=== PATIENT | female | born 1970 | race Hispanic/Latino ===

== ENCOUNTER 2020-10-15 15:04 | Inpatient (IN) | payer OTHER ==
[~2020-10-15] VITALS: Ht 157.5 cm; Wt 104.4 kg
[2020-10-15] MEDS ORDERED: ONDANSETRON HCL INJ 2MG/ML 2ML 2 MG/ML VIAL IV STA (16:04)
[2020-10-15] MEDS ORDERED: KETOROLAC TROMETHAMINE 30 MG/ML VIAL IV STA (16:04)
[2020-10-15] MEDS ORDERED: SODIUM CHLORIDE 0.9% 1000ML 1,000 ML IV STA (16:04)
[2020-10-15] MEDS ORDERED: METHYLPREDNISOLONE SOD SUCC 125 MG/2ML VIAL IV ONE (16:15)
[2020-10-15] MEDS ORDERED: SODIUM CHLORIDE FLUSH 10 ML SYR INJ PRN (16:15)
[2020-10-15] MEDS ORDERED: METHYLPREDNISOLONE SOD SUCC 125 MG/2ML VIAL ONE (17:13)
[2020-10-15] MEDS ORDERED: SODIUM CHLORIDE 0.9% 1000ML 1,000 ML ONE (17:14)
[2020-10-15] MEDS ORDERED: KETOROLAC TROMETHAMINE 30 MG/ML VIAL ONE (17:14)
[2020-10-15] MEDS ORDERED: ONDANSETRON HCL INJ 2MG/ML 2ML 2 MG/ML VIAL ONE (17:14)
[2020-10-15] MEDS ORDERED: SODIUM CHLORIDE 0.9% 50ML 50 ML ONE (17:39)
[2020-10-15] MEDS ORDERED: IOPAMIDOL 370 MG/ML 200 ML INFUS..BTL INJ ONE (17:39)
[2020-10-15] MEDS ORDERED: CEFEPIME 1GM/NS 0.9% 50 ML 50 ML IV STA (18:36)
[2020-10-15] MEDS ORDERED: AZITHROMYCIN 500MG/NS 250 ML 250 ML IV ONE (19:15)
[2020-10-15] MEDS ORDERED: AZITHROMYCIN 500MG/NS 250 ML 250 ML ONE (20:07)
[2020-10-15] MEDS ORDERED: ACETAMINOPHEN 325 MG TAB PO PRN (21:15)
[2020-10-15] MEDS ORDERED: CEFTRIAXONE SOD 1 GM/50 ML BAG IV SCH (21:15)
[2020-10-15] MEDS ORDERED: ONDANSETRON HCL INJ 2MG/ML 2ML 2 MG/ML VIAL IV PRN (21:15)
[2020-10-15] MEDS ORDERED: KETOROLAC TROMETHAMINE 30 MG/ML VIAL IV PRN (21:15)
[2020-10-15] MEDS: AZITHROMYCIN 500MG/NS 250 ML 250 ML IV SCH (21:24)
[2020-10-15] MEDS: SODIUM CHLORIDE 0.9% 1000ML 1,000 ML IV SCH (21:30)
[2020-10-15] MEDS ORDERED: REMDESIVIR 200MG/NS 100ML 200 MG in SODIUM CHLORIDE 0.9% 100 ML 100 ML IV ONE (23:00)
[2020-10-15 23:06] VITALS: BP 128/66
[2020-10-16] VITALS (8 sets, daily range): BP systolic 112–133; BP diastolic 54–72
[2020-10-16] MEDS: SODIUM CHLORIDE 0.9% 1000ML 1,000 ML IV SCH (06:53)
[2020-10-16 07:30] LABS: CREATINE KINASE 37 IU/L (29-168)
[2020-10-16] MEDS ORDERED: SIMETHICONE 80 MG CHEW PO PRN (07:30)
[2020-10-16] MEDS ORDERED: ONDANSETRON HCL INJ 2MG/ML 2ML 2 MG/ML VIAL IV PRN (07:30)
[2020-10-16] MEDS ORDERED: CHLORASEPTIC SPRAY 177 ML BTL MM PRN (07:30)
[2020-10-16] MEDS ORDERED: POLYETHYLENE GLYCOL 3350 17 GM PACK PO PRN (07:30)
[2020-10-16] MEDS ORDERED: LIDOCAINE 4% PATCH TP PRN (07:30)
[2020-10-16] MEDS ORDERED: BENZONATATE 100 MG CAP PO PRN (07:30)
[2020-10-16] MEDS ORDERED: DEXTROSE 50% SYRINGE 50 ML IV PRN (07:30)
[2020-10-16] MEDS ORDERED: HYDRALAZINE HCL 20 MG/ML VIAL IV PRN (07:30)
[2020-10-16] MEDS ORDERED: DOCUSATE SODIUM 100 MG CAP PO PRN (07:30)
[2020-10-16] MEDS ORDERED: POTASSIUM CHLORIDE 20 MEQ TAB CR PO PRN (07:30)
[2020-10-16 07:40] LABS: HEMATOCRIT 40.3 % (34.2-44.1); HEMOGLOBIN 13.3 g/dL (12.0-16.0); LYMPHOCYTES # (AUTO) 0.7 (1.0-3.2); LYMPHOCYTES % 23.4 % (18.0-39.1); MEAN CORPUSCULAR HEMOGLOBIN 27.3 pg (28-32); MEAN CORPUSCULAR VOLUME 82.6 fL (81-99); MONOCYTES # (AUTO) 0.2 (0.2-0.8); MONOCYTES % 6.3 % (4.4-11.3); NEUTROPHILS % 69.6 % (38.7-80.0); PLATELET COUNT 191 x10e3/uL (140-360); RED BLOOD COUNT 4.88 x10e6/uL (3.6-5.1); RED CELL DISTRIBUTION WIDTH 14.3 % (11.7-14.4)
[2020-10-16 07:50] LABS: ANION GAP 15.2 mmol/L (8-16); BLOOD UREA NITROGEN 14 mg/dL (7-26); BUN/CREATININE RATIO 23 (6-25); CALCIUM 8.3 mg/dL (8.4-10.2); CARBON DIOXIDE 21 mmol/L (22-29); CHLORIDE 107 mmol/L (98-107); CREATININE, SERUM 0.62 mg/dL (0.57-1.11); EST GLOMERULAR FILTRATION RATE > 60 ML/MIN (60-); GLUCOSE 135 mg/dL (74-118); POTASSIUM 4.2 mmol/L (3.5-5.1); SODIUM 139 mmol/L (136-145)
[2020-10-16] MEDS ORDERED: CEFTRIAXONE SOD 1 GM VIAL ONE (07:53)
[2020-10-16] MEDS: PANTOPRAZOLE SOD 40 MG TABEC PO SCH (08:23)
[2020-10-16] MEDS: ASCORBIC ACID 500 MG TAB PO SCH ×2 (08:23→16:04)
[2020-10-16] MEDS: ZINC SULFATE 220 MG CAP PO SCH (08:23)
[2020-10-16] MEDS: CEFTRIAXONE SOD 1 GM in DEXTROSE 5% 50ML 50 ML IV SCH (08:23)
[2020-10-16] MEDS ORDERED: METHYLPREDNISOLONE SOD SUCC 125 MG/2ML VIAL IV SCH (09:00)
[2020-10-16] MEDS: DEXAMETHASONE SOD PHOS INJ 4 MG/ML VIAL IV SCH (12:30)
[2020-10-16 15:33] LABS: CREATINE KINASE MB 0.5 ng/mL (0-5.0)
[2020-10-16] MEDS: BENZONATATE 100 MG CAP PO SCH ×2 (15:49→21:18)
[2020-10-16] MEDS: ENOXAPARIN SOD INJ 40 MG/0.4 ML SYR SC SCH (16:04)
[2020-10-16] MEDS ORDERED: METHYLPREDNISOLONE SOD SUCC 40 MG/ML VIAL 1ML IV SCH (21:00)
[2020-10-16] MEDS: AZITHROMYCIN 500MG/NS 250 ML 250 ML IV SCH (21:18)
[2020-10-16] MEDS: ACETAMINOPHEN 325 MG TAB PO PRN (21:30)
[2020-10-17] VITALS (8 sets, daily range): BP systolic 108–127; BP diastolic 53–64
[2020-10-17] MEDS: ACETAMINOPHEN 325 MG TAB PO PRN ×2 (05:51→21:23)
[2020-10-17] MEDS: BENZONATATE 100 MG CAP PO SCH ×3 (09:01→21:00)
[2020-10-17] MEDS: ASCORBIC ACID 500 MG TAB PO SCH ×2 (09:01→16:37)
[2020-10-17] MEDS: PANTOPRAZOLE SOD 40 MG TABEC PO SCH (09:01)
[2020-10-17] MEDS: DEXAMETHASONE SOD PHOS INJ 4 MG/ML VIAL IV SCH (09:01)
[2020-10-17] MEDS: CEFTRIAXONE SOD 1 GM in DEXTROSE 5% 50ML 50 ML IV SCH (09:01)
[2020-10-17] MEDS: ZINC SULFATE 220 MG CAP PO SCH (09:01)
[2020-10-17] MEDS: GUAIFENESIN/CODEINE 10 ML CUP PO PRN (12:00)
[2020-10-17] MEDS ORDERED: REMDESIVIR 200MG/NS 100ML 200 MG IV ONE (14:00)
[2020-10-17] MEDS: ENOXAPARIN SOD INJ 40 MG/0.4 ML SYR SC SCH (16:37)
[2020-10-17] MEDS: AZITHROMYCIN 500MG/NS 250 ML 250 ML IV SCH (21:15)
[2020-10-18] VITALS (7 sets, daily range): BP systolic 111–118; BP diastolic 56–63
[2020-10-18] MEDS ORDERED: CEFTRIAXONE SOD 1 GM VIAL ONE (08:01)
[2020-10-18] MEDS ORDERED: SODIUM CHLORIDE 0.9% 50ML 50 ML ONE (08:02)
[2020-10-18] MEDS: ZINC SULFATE 220 MG CAP PO SCH (08:30)
[2020-10-18] MEDS: DEXAMETHASONE SOD PHOS INJ 4 MG/ML VIAL IV SCH (08:30)
[2020-10-18] MEDS: PANTOPRAZOLE SOD 40 MG TABEC PO SCH (08:30)
[2020-10-18] MEDS: BENZONATATE 100 MG CAP PO SCH ×3 (08:30→21:39)
[2020-10-18] MEDS: ASCORBIC ACID 500 MG TAB PO SCH ×2 (08:30→16:25)
[2020-10-18] MEDS: CEFTRIAXONE SOD 1 GM in DEXTROSE 5% 50ML 50 ML IV SCH (08:30)
[2020-10-18] MEDS: REMDESIVIR 100MG/NS 100ML 100 MG in SODIUM CHLORIDE 0.9% 100 ML 100 ML IV SCH (14:31)
[2020-10-18] MEDS: ENOXAPARIN SOD INJ 40 MG/0.4 ML SYR SC SCH (16:25)
[2020-10-18] MEDS: GUAIFENESIN/CODEINE 10 ML CUP PO PRN (21:39)
[2020-10-18] MEDS: MELATONIN 5 MG TABLET PO PRN (21:39)
[2020-10-18] MEDS: DIPHENHYDRAMINE HCL 25 MG CAP PO PRN (21:39)
[2020-10-18] MEDS: AZITHROMYCIN 500MG/NS 250 ML 250 ML IV SCH (21:39)
[2020-10-19] VITALS (9 sets, daily range): BP systolic 111–149; BP diastolic 59–76
[2020-10-19 05:00] LABS: BASOPHILS % 0.3 % (0.0-1.0); HEMATOCRIT 38.6 % (34.2-44.1); HEMOGLOBIN 12.5 g/dL (12.0-16.0); LYMPHOCYTES # (AUTO) 1.8 (1.0-3.2); LYMPHOCYTES % 28.3 % (18.0-39.1); MEAN CORPUSCULAR HEMOGLOBIN 27.2 pg (28-32); MEAN CORPUSCULAR HGB CONC 32.4 g/dL (31-35); MEAN CORPUSCULAR VOLUME 83.9 fL (81-99); MONOCYTES # (AUTO) 0.6 (0.2-0.8); MONOCYTES % 9.7 % (4.4-11.3); NEUTROPHILS # (AUTO) 3.9 (2.1-6.9); NEUTROPHILS % 60.6 % (38.7-80.0); PLATELET COUNT 242 x10e3/uL (140-360); RED CELL DISTRIBUTION WIDTH 14.3 % (11.7-14.4)
[2020-10-19 05:24] LABS: ANION GAP 12.8 mmol/L (8-16); BLOOD UREA NITROGEN 19 mg/dL (7-26); BUN/CREATININE RATIO 29 (6-25); CALCIUM 8.6 mg/dL (8.4-10.2); CARBON DIOXIDE 26 mmol/L (22-29); CHLORIDE 104 mmol/L (98-107); CREATININE, SERUM 0.65 mg/dL (0.57-1.11); EST GLOMERULAR FILTRATION RATE > 60 ML/MIN (60-); GLUCOSE 95 mg/dL (74-118); POTASSIUM 3.8 mmol/L (3.5-5.1); SODIUM 139 mmol/L (136-145)
[2020-10-19 06:34] LABS: LYMPHOCYTES % (MANUAL) 33 % (19-48); MONOCYTES % (MANUAL) 8 % (3.4-9.0); NEUTROPHILS % (MANUAL) 54 % (40-74)
[2020-10-19 06:35] LABS: PLATELET ESTIMATE ADEQUATE; PLATELET MORPHOLOGY COMMENT NORMAL; RBC MORPHOLOGY COMMENT NORMAL
[2020-10-19] MEDS: PANTOPRAZOLE SOD 40 MG TABEC PO SCH (07:35)
[2020-10-19] MEDS: DEXAMETHASONE SOD PHOS INJ 4 MG/ML VIAL IV SCH (07:36)
[2020-10-19] MEDS: ZINC SULFATE 220 MG CAP PO SCH (07:37)
[2020-10-19] MEDS: CEFTRIAXONE SOD 1 GM in DEXTROSE 5% 50ML 50 ML IV SCH (07:37)
[2020-10-19] MEDS: ASCORBIC ACID 500 MG TAB PO SCH ×2 (07:37→16:28)
[2020-10-19] MEDS: BENZONATATE 100 MG CAP PO SCH ×3 (07:37→20:53)
[2020-10-19] MEDS: REMDESIVIR 100MG/NS 100ML 100 MG in SODIUM CHLORIDE 0.9% 100 ML 100 ML IV SCH (13:15)
[2020-10-19] MEDS: ENOXAPARIN SOD INJ 40 MG/0.4 ML SYR SC SCH (16:28)
[2020-10-19] MEDS: DIPHENHYDRAMINE HCL 25 MG CAP PO PRN (20:53)
[2020-10-19] MEDS: AZITHROMYCIN 500MG/NS 250 ML 250 ML IV SCH (20:53)
[2020-10-19] MEDS: MELATONIN 5 MG TABLET PO PRN (20:53)
[2020-10-20] VITALS (7 sets, daily range): BP systolic 112–125; BP diastolic 54–74
[2020-10-20] MEDS ORDERED: CEFTRIAXONE SOD 1 GM VIAL ONE (07:59)
[2020-10-20] MEDS: DEXAMETHASONE SOD PHOS INJ 4 MG/ML VIAL IV SCH (08:37)
[2020-10-20] MEDS: PANTOPRAZOLE SOD 40 MG TABEC PO SCH (08:37)
[2020-10-20] MEDS: ASCORBIC ACID 500 MG TAB PO SCH ×2 (08:38→15:15)
[2020-10-20] MEDS: CEFTRIAXONE SOD 1 GM in DEXTROSE 5% 50ML 50 ML IV SCH (08:38)
[2020-10-20] MEDS: ZINC SULFATE 220 MG CAP PO SCH (08:38)
[2020-10-20] MEDS: BENZONATATE 100 MG CAP PO SCH ×3 (08:38→21:00)
[2020-10-20] MEDS: REMDESIVIR 100MG/NS 100ML 100 MG in SODIUM CHLORIDE 0.9% 100 ML 100 ML IV SCH (14:00)
[2020-10-20] MEDS: ENOXAPARIN SOD INJ 40 MG/0.4 ML SYR SC SCH (15:15)
[2020-10-20] MEDS: DIPHENHYDRAMINE HCL 25 MG CAP PO PRN (21:07)
[2020-10-20] MEDS: MELATONIN 5 MG TABLET PO PRN (21:07)
[2020-10-20] MEDS: AZITHROMYCIN 500MG/NS 250 ML 250 ML IV SCH (21:07)
[2020-10-21 00:05] VITALS: BP 125/68
[2020-10-21 04:00] VITALS: BP 139/72
[2020-10-21] MEDS ORDERED: CEFTRIAXONE SOD 1 GM VIAL ONE (07:36)
[2020-10-21] MEDS ORDERED: SODIUM CHLORIDE 0.9% 250ML 250 ML ONE (07:37)
[2020-10-21] MEDS ORDERED: SODIUM CHLORIDE 0.9% 50ML 50 ML ONE (07:37)
[2020-10-21] MEDS: DEXAMETHASONE SOD PHOS INJ 4 MG/ML VIAL IV SCH (07:39)
[2020-10-21] MEDS: CEFTRIAXONE SOD 1 GM in DEXTROSE 5% 50ML 50 ML IV SCH (07:39)
[2020-10-21] MEDS: PANTOPRAZOLE SOD 40 MG TABEC PO SCH (07:39)
[2020-10-21] MEDS: BENZONATATE 100 MG CAP PO SCH ×2 (07:39→15:35)
[2020-10-21] MEDS: ZINC SULFATE 220 MG CAP PO SCH (07:40)
[2020-10-21] MEDS: ASCORBIC ACID 500 MG TAB PO SCH (07:40)
[2020-10-21 07:52] LABS: ANION GAP 11.8 mmol/L (8-16); BLOOD UREA NITROGEN 19 mg/dL (7-26); BUN/CREATININE RATIO 30 (6-25); CALCIUM 8.8 mg/dL (8.4-10.2); CARBON DIOXIDE 27 mmol/L (22-29); CHLORIDE 102 mmol/L (98-107); CREATININE, SERUM 0.64 mg/dL (0.57-1.11); EST GLOMERULAR FILTRATION RATE > 60 ML/MIN (60-); GLUCOSE 86 mg/dL (74-118); POTASSIUM 3.8 mmol/L (3.5-5.1); SODIUM 137 mmol/L (136-145)
[2020-10-21 08:00] VITALS: BP 135/78
[2020-10-21 09:19] VITALS: BP 135/78
[2020-10-21 12:00] VITALS: BP 122/74
[2020-10-21] MEDS: REMDESIVIR 100MG/NS 100ML 100 MG in SODIUM CHLORIDE 0.9% 100 ML 100 ML IV SCH (14:34)
[2020-10-21] MEDS ORDERED: TESSALON PERLE100 MG PO (14:48)
[2020-10-21 16:00] VITALS: BP 111/68
== END 2020-10-21 18:30 | disposition home or self-care (01) | DRG 871 ==
LOC: FSED 15:27 → ERHOLD 21:20 → IMCU 23:06 → MED/SURG3 10-20 16:39
PROVIDERS: ADMIT Internal Medicine; ATTEND Internal Medicine
PROC: 8E0ZXY6 Isolation (ICD-10-PCS; principal; 2020-10-15)
PROC: XW033E5 Introduction of Remdesivir Anti-infective into Peripheral Vein, Percutaneous Approach, New Technology Group 5 (ICD-10-PCS; 2020-10-15)
DX: A41.89 Other specified sepsis (principal); U07.1 COVID-19; J12.82 Pneumonia due to coronavirus disease 2019; J96.01 Acute respiratory failure with hypoxia; Z68.41 Body mass index [BMI] 40.0-44.9, adult; D70.9 Neutropenia, unspecified; E66.01 Morbid (severe) obesity due to excess calories; D72.819 Decreased white blood cell count, unspecified
CPT/HCPCS: 36415; 70450; 71260; 74177; 80048; 80053; 80076; 81003; 81025; 82550; 82553; 83518; 83735; 83880; 84484; 85025; 85379; 87040; 87400; 93005; 96374; 96375; 99284; J0456; J0692; J0696; J1100; J1650; J1885; J2405; J2930; J7030; J7050; Q9967; U0002